=== PATIENT | male | born 1995 | race Caucasian/White ===

== ENCOUNTER 2022-07-30 13:43 | Inpatient (IN) | payer OTHER ==
[2022-07-30 15:05] VITALS: BMI 24.5
[2022-07-30] MEDS ORDERED: ACETAMINOPHEN 325 MG TABLET (FP) PO PRN (18:38)
[2022-07-30] MEDS ORDERED: P-EPHED 60MG/TRIPROLIDI 2.5MG TABLET PO PRN (18:38)
[2022-07-30] MEDS ORDERED: guaiFENesin 200 MG/10 ML 10 ML UNIT-DOSE CUPS PO PRN (18:38)
[2022-07-30] MEDS ORDERED: MELATONIN 5 MG TABLETS PO PRN (18:38)
[2022-07-30] MEDS ORDERED: MAG HYDROX/AL HYDROX/SIMETH 30 ML UNIT-DOSE CUP PO PRN (18:38)
[2022-07-30] MEDS ORDERED: MAGNESIUM HYDROX 2400MG/30ML ORAL SUSPENSION 30 ML CUP PO PRN (18:38)
[2022-07-30] MEDS ORDERED: BENZOCAINE/MENTHOL (CHLORASEPTIC ) LOZENGE MM PRN (18:38)
[2022-07-30] MEDS ORDERED: LOPERAMIDE HCL 2 MG CAPSULE PO PRN (18:38)
[2022-07-30] MEDS ORDERED: IBUPROFEN 400 MG TABLET (FP) PO PRN (18:38)
[2022-07-30] MEDS: THIAMINE HCL 100 MG TABLET (FP) PO SCH (22:13)
[2022-07-30] MEDS ORDERED: TUBERCULIN PPD 5 TU/0.1ML VIAL ID ONE (22:16)
[2022-07-30] MEDS: hydrOXYzine PAMOATE 25 MG CAPSULE (FP) PO PRN (22:16)
[2022-07-30] MEDS: BACITRACIN ZINC 15 GM TUBE TOPICAL OINTMENT TP SCH (22:16)
[2022-07-31] MEDS: BACITRACIN ZINC 15 GM TUBE TOPICAL OINTMENT TP SCH ×2 (10:21→21:11)
[2022-07-31] MEDS: PRENATAL VITAMINS W/ FOLIC ACID TABLET (FP) PO SCH (10:21)
[2022-07-31 11:02] LABS: PH,URINE 6.5 (5.0-8.0); URINE APPEARANCE CLEAR; URINE BILIRUBIN NEGATIVE (NEGATIVE); URINE COLOR YELLOW; URINE GLUCOSE (UA) NEGATIVE (NEGATIVE); URINE KETONE NEGATIVE (NEGATIVE); URINE LEUK ESTERASE NEGATIVE (NEGATIVE); URINE NITRITE NEGATIVE (NEGATIVE); URINE PROTEIN NEGATIVE (NEGATIVE)
[2022-07-31 11:03] LABS: HEMATOCRIT 27.9 % (35.4-49); HEMOGLOBIN 9.8 GM/dL (11.7-16.9); MCH 31.4 pg (25.7-33.7); MEAN CELL VOLUME 89.7 fl (80-96); MEAN PLT VOLUME 9.1 fl (7.5-11.1); PLATELET COUNT 83 10^3/uL (134-434); RBC 3.11 M/mm3 (4.00-5.60); RDW 14.7 % (11.9-15.9)
[2022-07-31 11:29] LABS: WHITE BLOOD COUNT 1.9 K/mm3 (4.0-10.0)
[2022-07-31 11:42] LABS: ALBUMIN 2.5 g/dl (3.4-5.0); CALCIUM 7.9 mg/dL (8.5-10.1)
[2022-07-31 11:43] LABS: BLOOD UREA NITROGEN 10.2 mg/dL (7-18)
[2022-07-31 11:46] LABS: CREATININE 0.6 mg/dL (0.55-1.3)
[2022-07-31 11:48] LABS: BILIRUBIN,TOTAL 0.4 mg/dL (0.2-1)
[2022-07-31 12:23] LABS: SYPHILIS W/ RPR CONF NON-REACTIVE (NONREACTIVE)
[2022-07-31] MEDS ORDERED: methaDONE HCL 10 MG TABLET PO ONE (14:00)
[2022-07-31] MEDS ORDERED: methaDONE 40 MG, methaDONE 20 MG PO ONE (14:00)
[2022-07-31] MEDS ORDERED: BICTEGRAV/EMTRICIT/TENOFOV (BIKTARVY) 50-200-25 MG TABLET PO SCH (15:00)
[2022-07-31] MEDS ORDERED: BICTEGRAV/EMTRICIT/TENOFOV (BIKTARVY) 50-200-25 MG TABLET PO ONE (15:15)
[2022-07-31] MEDS: FERROUS SO4 325 MG TABLET (FP) PO SCH (17:27)
[2022-07-31] MEDS ORDERED: FERROUS SO4 325 MG TABLET (FP) PO SCH (17:30)
[2022-07-31] MEDS: THIAMINE HCL 100 MG TABLET (FP) PO SCH (21:10)
[2022-07-31] MEDS: DOCUSATE SODIUM 100 MG CAPSULE (FP) PO SCH (21:11)
[2022-07-31] MEDS: SUVOREXANT 10 MG TABLET PO PRN (21:11)
[2022-08-01] MEDS ORDERED: methaDONE 40 MG, methaDONE 30 MG PO ONE (06:00)
[2022-08-01] MEDS ORDERED: methaDONE HCL 10 MG TABLET PO ONE (06:00)
[2022-08-01] MEDS: DOCUSATE SODIUM 100 MG CAPSULE (FP) PO SCH ×3 (06:26→21:24)
[2022-08-01] MEDS: FERROUS SO4 325 MG TABLET (FP) PO SCH ×2 (07:30→18:24)
[2022-08-01] MEDS: BICTEGRAV/EMTRICIT/TENOFOV (BIKTARVY) 50-200-25 MG TABLET PO SCH (07:40)
[2022-08-01] MEDS ORDERED: BICTEGRAV/EMTRICIT/TENOFOV (BIKTARVY) 50-200-25 MG TABLET PO SCH (10:00)
[2022-08-01] MEDS: PRENATAL VITAMINS W/ FOLIC ACID TABLET (FP) PO SCH (10:59)
[2022-08-01] MEDS: BACITRACIN ZINC 15 GM TUBE TOPICAL OINTMENT TP SCH ×2 (10:59→21:25)
[2022-08-01] MEDS ORDERED: BICTEGRAV/EMTRICIT/TENOFOV (BIKTARVY) 50-200-25 MG TABLET PO ONE (14:49)
[2022-08-01] MEDS: THIAMINE HCL 100 MG TABLET (FP) PO SCH (21:24)
[2022-08-01] MEDS: SUVOREXANT 10 MG TABLET PO PRN (21:25)
[2022-08-02] MEDS ORDERED: methaDONE HCL 40 MG DISPERSABLE TABLET PO ONE (06:00)
[2022-08-02] MEDS: DOCUSATE SODIUM 100 MG CAPSULE (FP) PO SCH ×3 (06:24→21:50)
[2022-08-02] MEDS: hydrOXYzine PAMOATE 25 MG CAPSULE (FP) PO PRN (06:25)
[2022-08-02] MEDS: FERROUS SO4 325 MG TABLET (FP) PO SCH ×2 (07:10→17:08)
[2022-08-02] MEDS: BICTEGRAV/EMTRICIT/TENOFOV (BIKTARVY) 50-200-25 MG TABLET PO SCH (07:10)
[2022-08-02] MEDS: PRENATAL VITAMINS W/ FOLIC ACID TABLET (FP) PO SCH (10:26)
[2022-08-02] MEDS: BACITRACIN ZINC 15 GM TUBE TOPICAL OINTMENT TP SCH ×2 (10:26→21:49)
[2022-08-02] MEDS: SUVOREXANT 10 MG TABLET PO PRN (21:50)
[2022-08-02] MEDS: THIAMINE HCL 100 MG TABLET (FP) PO SCH (21:50)
[2022-08-03] MEDS ORDERED: methaDONE HCL 10 MG TABLET PO ONE (06:00)
[2022-08-03] MEDS ORDERED: methaDONE 80 MG, methaDONE 10 MG PO ONE (06:00)
[2022-08-03] MEDS: hydrOXYzine PAMOATE 25 MG CAPSULE (FP) PO PRN ×2 (06:35→21:48)
[2022-08-03] MEDS: DOCUSATE SODIUM 100 MG CAPSULE (FP) PO SCH ×3 (06:35→21:47)
[2022-08-03] MEDS: BICTEGRAV/EMTRICIT/TENOFOV (BIKTARVY) 50-200-25 MG TABLET PO SCH (07:02)
[2022-08-03] MEDS: FERROUS SO4 325 MG TABLET (FP) PO SCH ×2 (07:02→17:28)
[2022-08-03] MEDS: PRENATAL VITAMINS W/ FOLIC ACID TABLET (FP) PO SCH (09:59)
[2022-08-03] MEDS: BACITRACIN ZINC 15 GM TUBE TOPICAL OINTMENT TP SCH ×2 (09:59→22:01)
[2022-08-03] MEDS: NICOTINE 10 MG CARTRIDGE (INHALER) IH PRN ×2 (09:59→17:28)
[2022-08-03] MEDS: POLYETHYLENE GLYCOL (HEALTHYLAX) 3350 17 GM PACKET PO PRN (10:01)
[2022-08-03] MEDS: THIAMINE HCL 100 MG TABLET (FP) PO SCH (21:47)
[2022-08-03] MEDS: SUVOREXANT 10 MG TABLET PO PRN (21:50)
[2022-08-04] MEDS ORDERED: methaDONE HCL 10 MG TABLET PO ONE (06:00)
[2022-08-04] MEDS ORDERED: methaDONE 80 MG, methaDONE 20 MG PO ONE (06:00)
[2022-08-04] MEDS: DOCUSATE SODIUM 100 MG CAPSULE (FP) PO SCH ×3 (06:08→21:23)
[2022-08-04] MEDS: POLYETHYLENE GLYCOL (HEALTHYLAX) 3350 17 GM PACKET PO PRN (06:09)
[2022-08-04] MEDS: hydrOXYzine PAMOATE 25 MG CAPSULE (FP) PO PRN (06:10)
[2022-08-04] MEDS: BICTEGRAV/EMTRICIT/TENOFOV (BIKTARVY) 50-200-25 MG TABLET PO SCH (08:00)
[2022-08-04] MEDS: FERROUS SO4 325 MG TABLET (FP) PO SCH ×2 (08:00→17:12)
[2022-08-04] MEDS: PRENATAL VITAMINS W/ FOLIC ACID TABLET (FP) PO SCH (10:42)
[2022-08-04] MEDS: NICOTINE 10 MG CARTRIDGE (INHALER) IH PRN ×2 (10:42→14:31)
[2022-08-04] MEDS: BACITRACIN ZINC 15 GM TUBE TOPICAL OINTMENT TP SCH ×2 (11:28→21:23)
[2022-08-04] MEDS: SUVOREXANT 10 MG TABLET PO PRN (21:22)
[2022-08-04] MEDS: THIAMINE HCL 100 MG TABLET (FP) PO SCH (21:22)
[2022-08-05] MEDS ORDERED: methaDONE HCL 10 MG TABLET PO SCH (06:00)
[2022-08-05] MEDS ORDERED: methaDONE HCL 10 MG TABLET PO ONE (06:00)
[2022-08-05] MEDS: DOCUSATE SODIUM 100 MG CAPSULE (FP) PO SCH ×3 (06:33→21:14)
[2022-08-05] MEDS: BICTEGRAV/EMTRICIT/TENOFOV (BIKTARVY) 50-200-25 MG TABLET PO SCH (07:01)
[2022-08-05] MEDS: POLYETHYLENE GLYCOL (HEALTHYLAX) 3350 17 GM PACKET PO PRN (08:36)
[2022-08-05] MEDS: FERROUS SO4 325 MG TABLET (FP) PO SCH ×2 (08:36→17:20)
[2022-08-05] MEDS: NICOTINE 10 MG CARTRIDGE (INHALER) IH PRN ×2 (08:36→22:17)
[2022-08-05] MEDS: BACITRACIN ZINC 15 GM TUBE TOPICAL OINTMENT TP SCH ×2 (09:58→21:15)
[2022-08-05] MEDS: PRENATAL VITAMINS W/ FOLIC ACID TABLET (FP) PO SCH (09:58)
[2022-08-05] MEDS: SUVOREXANT 10 MG TABLET PO PRN (21:14)
[2022-08-05] MEDS: THIAMINE HCL 100 MG TABLET (FP) PO SCH (21:14)
[2022-08-06] MEDS: DOCUSATE SODIUM 100 MG CAPSULE (FP) PO SCH ×3 (06:27→21:29)
[2022-08-06] MEDS: NICOTINE 10 MG CARTRIDGE (INHALER) IH PRN ×3 (06:30→17:47)
[2022-08-06] MEDS: FERROUS SO4 325 MG TABLET (FP) PO SCH ×2 (07:08→17:47)
[2022-08-06] MEDS: BICTEGRAV/EMTRICIT/TENOFOV (BIKTARVY) 50-200-25 MG TABLET PO SCH (07:08)
[2022-08-06] MEDS: PRENATAL VITAMINS W/ FOLIC ACID TABLET (FP) PO SCH (10:39)
[2022-08-06] MEDS: POLYETHYLENE GLYCOL (HEALTHYLAX) 3350 17 GM PACKET PO PRN (10:40)
[2022-08-06] MEDS: BACITRACIN ZINC 15 GM TUBE TOPICAL OINTMENT TP SCH ×2 (10:42→21:29)
[2022-08-06] MEDS: SUVOREXANT 10 MG TABLET PO PRN (21:29)
[2022-08-06] MEDS: THIAMINE HCL 100 MG TABLET (FP) PO SCH (21:29)
[2022-08-07] MEDS: DOCUSATE SODIUM 100 MG CAPSULE (FP) PO SCH ×3 (06:31→21:11)
[2022-08-07] MEDS: BICTEGRAV/EMTRICIT/TENOFOV (BIKTARVY) 50-200-25 MG TABLET PO SCH (07:08)
[2022-08-07] MEDS: FERROUS SO4 325 MG TABLET (FP) PO SCH ×2 (07:08→17:20)
[2022-08-07] MEDS: POLYETHYLENE GLYCOL (HEALTHYLAX) 3350 17 GM PACKET PO PRN (10:03)
[2022-08-07] MEDS: PRENATAL VITAMINS W/ FOLIC ACID TABLET (FP) PO SCH (10:03)
[2022-08-07] MEDS: BACITRACIN ZINC 15 GM TUBE TOPICAL OINTMENT TP SCH ×2 (10:03→21:12)
[2022-08-07] MEDS: NICOTINE 10 MG CARTRIDGE (INHALER) IH PRN ×2 (10:16→21:12)
[2022-08-07] MEDS: THIAMINE HCL 100 MG TABLET (FP) PO SCH (21:11)
[2022-08-07] MEDS: SUVOREXANT 10 MG TABLET PO PRN (21:11)
[2022-08-08] MEDS: DOCUSATE SODIUM 100 MG CAPSULE (FP) PO SCH ×3 (06:31→21:25)
[2022-08-08] MEDS: hydrOXYzine PAMOATE 25 MG CAPSULE (FP) PO PRN (06:32)
[2022-08-08] MEDS: FERROUS SO4 325 MG TABLET (FP) PO SCH ×2 (07:09→16:30)
[2022-08-08] MEDS: BICTEGRAV/EMTRICIT/TENOFOV (BIKTARVY) 50-200-25 MG TABLET PO SCH (07:09)
[2022-08-08] MEDS: PRENATAL VITAMINS W/ FOLIC ACID TABLET (FP) PO SCH (10:07)
[2022-08-08] MEDS: BACITRACIN ZINC 15 GM TUBE TOPICAL OINTMENT TP SCH ×2 (10:08→21:26)
[2022-08-08] MEDS: POLYETHYLENE GLYCOL (HEALTHYLAX) 3350 17 GM PACKET PO PRN (10:08)
[2022-08-08] MEDS: NICOTINE 10 MG CARTRIDGE (INHALER) IH PRN ×2 (16:30→21:26)
[2022-08-08] MEDS: NICOTINE POLACRILEX 2 MG GUM BC PRN ×2 (16:31→21:26)
[2022-08-08] MEDS: THIAMINE HCL 100 MG TABLET (FP) PO SCH (21:25)
[2022-08-08] MEDS: SUVOREXANT 10 MG TABLET PO PRN (21:26)
[2022-08-09] MEDS: DOCUSATE SODIUM 100 MG CAPSULE (FP) PO SCH ×3 (06:39→21:40)
[2022-08-09] MEDS: BICTEGRAV/EMTRICIT/TENOFOV (BIKTARVY) 50-200-25 MG TABLET PO SCH (07:02)
[2022-08-09] MEDS: FERROUS SO4 325 MG TABLET (FP) PO SCH ×2 (07:02→17:42)
[2022-08-09] MEDS: PRENATAL VITAMINS W/ FOLIC ACID TABLET (FP) PO SCH (09:55)
[2022-08-09] MEDS: BACITRACIN ZINC 15 GM TUBE TOPICAL OINTMENT TP SCH ×2 (09:55→21:40)
[2022-08-09] MEDS: NICOTINE 10 MG CARTRIDGE (INHALER) IH PRN (09:55)
[2022-08-09] MEDS: NICOTINE POLACRILEX 2 MG GUM BC PRN ×2 (09:56→17:44)
[2022-08-09] MEDS: THIAMINE HCL 100 MG TABLET (FP) PO SCH (21:40)
[2022-08-09] MEDS: SUVOREXANT 10 MG TABLET PO PRN (21:40)
[2022-08-10] MEDS: DOCUSATE SODIUM 100 MG CAPSULE (FP) PO SCH ×3 (06:25→21:19)
[2022-08-10] MEDS: hydrOXYzine PAMOATE 25 MG CAPSULE (FP) PO PRN ×2 (06:25→21:19)
[2022-08-10] MEDS: BICTEGRAV/EMTRICIT/TENOFOV (BIKTARVY) 50-200-25 MG TABLET PO SCH (07:08)
[2022-08-10] MEDS: FERROUS SO4 325 MG TABLET (FP) PO SCH ×2 (07:08→17:29)
[2022-08-10] MEDS: PRENATAL VITAMINS W/ FOLIC ACID TABLET (FP) PO SCH (10:35)
[2022-08-10] MEDS: BACITRACIN ZINC 15 GM TUBE TOPICAL OINTMENT TP SCH ×2 (10:35→21:20)
[2022-08-10] MEDS: POLYETHYLENE GLYCOL (HEALTHYLAX) 3350 17 GM PACKET PO PRN (10:36)
[2022-08-10] MEDS: THIAMINE HCL 100 MG TABLET (FP) PO SCH (21:19)
[2022-08-11] MEDS: DOCUSATE SODIUM 100 MG CAPSULE (FP) PO SCH ×3 (06:29→21:35)
[2022-08-11] MEDS: hydrOXYzine PAMOATE 25 MG CAPSULE (FP) PO PRN (06:30)
[2022-08-11] MEDS: BICTEGRAV/EMTRICIT/TENOFOV (BIKTARVY) 50-200-25 MG TABLET PO SCH (07:05)
[2022-08-11] MEDS: FERROUS SO4 325 MG TABLET (FP) PO SCH ×2 (07:05→17:17)
[2022-08-11 07:11] VITALS: RESP 18
[2022-08-11] MEDS: PRENATAL VITAMINS W/ FOLIC ACID TABLET (FP) PO SCH (10:30)
[2022-08-11] MEDS: BACITRACIN ZINC 15 GM TUBE TOPICAL OINTMENT TP SCH ×2 (10:30→21:51)
[2022-08-11] MEDS: POLYETHYLENE GLYCOL (HEALTHYLAX) 3350 17 GM PACKET PO PRN (10:31)
[2022-08-11] MEDS ORDERED: MAGNESIUM HYDROX 2400MG/30ML ORAL SUSPENSION 30 ML CUP PO PRN (11:33)
[2022-08-11] MEDS: NICOTINE 10 MG CARTRIDGE (INHALER) IH PRN ×2 (16:07→21:35)
[2022-08-11] MEDS: NICOTINE POLACRILEX 2 MG GUM BC PRN (18:20)
[2022-08-11] MEDS: THIAMINE HCL 100 MG TABLET (FP) PO SCH (21:35)
[2022-08-11] MEDS ORDERED: SUVOREXANT 10 MG TABLET PO PRN (22:00)
[2022-08-12] MEDS: DOCUSATE SODIUM 100 MG CAPSULE (FP) PO SCH ×3 (06:02→22:02)
[2022-08-12] MEDS: BICTEGRAV/EMTRICIT/TENOFOV (BIKTARVY) 50-200-25 MG TABLET PO SCH (07:29)
[2022-08-12] MEDS: FERROUS SO4 325 MG TABLET (FP) PO SCH ×2 (07:30→17:39)
[2022-08-12] MEDS ORDERED: SENNOSIDES 8.6MG TABLET (FP) PO PRN (10:33)
[2022-08-12] MEDS: BACITRACIN ZINC 15 GM TUBE TOPICAL OINTMENT TP SCH ×2 (10:48→22:03)
[2022-08-12] MEDS: PRENATAL VITAMINS W/ FOLIC ACID TABLET (FP) PO SCH (10:49)
[2022-08-12] MEDS: NICOTINE 10 MG CARTRIDGE (INHALER) IH PRN ×2 (10:49→22:06)
[2022-08-12] MEDS: POLYETHYLENE GLYCOL (HEALTHYLAX) 3350 17 GM PACKET PO PRN (13:28)
[2022-08-12] MEDS ORDERED: SUVOREXANT 15 MG TABLET PO PRN (22:00)
[2022-08-12] MEDS: THIAMINE HCL 100 MG TABLET (FP) PO SCH (22:03)
[2022-08-13] MEDS: DOCUSATE SODIUM 100 MG CAPSULE (FP) PO SCH (06:37)
[2022-08-13] MEDS: NICOTINE POLACRILEX 2 MG GUM BC PRN (06:40)
[2022-08-13 07:05] VITALS: BP 118/73; PULSE 73; TEMP 97.8
[2022-08-13] MEDS: BICTEGRAV/EMTRICIT/TENOFOV (BIKTARVY) 50-200-25 MG TABLET PO SCH (07:24)
[2022-08-13] MEDS: FERROUS SO4 325 MG TABLET (FP) PO SCH (07:24)
[2022-08-13] MEDS: BACITRACIN ZINC 15 GM TUBE TOPICAL OINTMENT TP SCH (09:44)
[2022-08-13] MEDS: PRENATAL VITAMINS W/ FOLIC ACID TABLET (FP) PO SCH (09:44)
[2022-08-13 11:06] LABS: HEMATOCRIT 37.7 % (35.4-49); HEMOGLOBIN 12.6 GM/dL (11.7-16.9); MCH 29.7 pg (25.7-33.7); MCHC 33.4 g/dl (32.0-35.9); MEAN CELL VOLUME 88.9 fl (80-96); MEAN PLT VOLUME 8.8 fl (7.5-11.1); PLATELET COUNT 109 10^3/uL (134-434); RBC 4.24 M/mm3 (4.00-5.60); RDW 15.9 % (11.9-15.9); WHITE BLOOD COUNT 4.6 K/mm3 (4.0-10.0)
[2022-08-13 11:10] LABS: BLOOD UREA NITROGEN 16.7 mg/dL (7-18)
[2022-08-13 11:12] LABS: CREATININE 0.8 mg/dL (0.55-1.3); TOT PROT 7.6 g/dl (6.4-8.2)
[2022-08-13 11:26] LABS: ALBUMIN 3.2 g/dl (3.4-5.0); BILIRUBIN,TOTAL 0.7 mg/dL (0.2-1); CALCIUM 9.1 mg/dL (8.5-10.1)
[2022-08-13 12:17] LABS: ANISOCYTOSIS 0; HELMET CELLS 0; HOWELL-JOLLY BODIES 0; MACROCYTOSIS 0; OVALOCYTE 0; ROULEAU 0; SICKELED CELLS 0; TARGET CELLS 0; TEAR DROP CELLS 0; TOXIC GRANULATION 0
== END 2022-08-13 10:17 | disposition home or self-care (01) | DRG 772 ==
LOC: YASAS 13:43 → Y3W 18:32
PROVIDERS: ADMIT Allergy & Immunology; ATTEND Allergy & Immunology
PROC: HZ42ZZZ Group Counseling for Substance Abuse Treatment, Cognitive-Behavioral (ICD-10-PCS; principal; 2022-07-30)
DX: F11.20 Opioid dependence, uncomplicated (principal); F14.20 Cocaine dependence, uncomplicated; F12.20 Cannabis dependence, uncomplicated; F13.10 Sedative, hypnotic or anxiolytic abuse, uncomplicated; F15.10 Other stimulant abuse, uncomplicated; F17.210 Nicotine dependence, cigarettes, uncomplicated; F19.280 Other psychoactive substance dependence with psychoactive substance-induced anxiety disorder; F19.282 Other psychoactive substance dependence with psychoactive substance-induced sleep disorder; F19.24 Other psychoactive substance dependence with psychoactive substance-induced mood disorder; Z21 Asymptomatic human immunodeficiency virus [HIV] infection status; D69.6 Thrombocytopenia, unspecified; D72.819 Decreased white blood cell count, unspecified; G47.00 Insomnia, unspecified; K59.00 Constipation, unspecified; Z28.310 Unvaccinated for COVID-19; Z28.9 Immunization not carried out for unspecified reason
CPT/HCPCS: 36415; 80053; 81003; 82140; 85025; 85027; 86780; 86803; 87522; C9803-CS; U0003; U0005